=== PATIENT | male | born 1990 | race Caucasian/White ===

== ENCOUNTER 2019-09-14 16:48 | Emergency (ER) | payer SELFPAY ==
[~2019-09-14] VITALS: Ht 162.6 cm; Wt 63.6 kg
[2019-09-14 17:06] VITALS: BP 127/74
--- NOTE | 2019-09-14 17:16 | PHYS DOC ---
Past Medical History Past Medical History: Asthma Past Surgical History: No Surgical History Smoking Status: Current Every Day Smoker Alcohol Use: Occasionally Adult General Chief Complaint Chief Complaint: ABSCESS [facility] Patient is a 29 year old male who presents with bug bite to his abdomen in the left lower quadrant that he states hurts. He states it has been there 1 week. Denies any other symptoms but states his pain is 7/10 in severity and sharp. De nies fever or any additional symptoms. Complete ROS were reviewed and found to be within normal limits, except as documented in the [facility] Allergies Allergies Allergies Coded Allergies Type Severity Reaction Last Updated Verified No Known Drug Allergies 09/14/19 No Physical Exam Physical Exam Constitutional: Well developed, well nourished, no acute distress, non-toxic appearance. [] HENT: Normocephalic, atraumatic, bilateral external ears normal, oropharynx moist, no oral exudates, nose normal. [] Eyes: PERRLA, EOMI, conjunctiva normal, no discharge. [] Skin: Quarter side area of hardness to abdomen with no fluctuence but erythema. Has a head that appears to be from a bug bite. Neurologic: Alert and oriented X 3, normal motor function, normal sensory function, no focal deficits noted. [] Psychologic: Affect normal, judgement normal, mood normal. [] Current Patient Data Vital Signs Vital Signs Date Time Temp Pulse Resp B/P (MAP) Pulse Ox O2 Delivery O2 Flow Rate FiO2 09/14/19 17:06 99.6 98 20 127/74 (91) 100 Room Air 99.6 EKG EKG [] Radiology/Procedures Radiology/Procedures [] Course & Med Decision Making Course & Med Decision Making Pertinent Labs and Imaging studies reviewed. (See chart for details) Will place patient on Keflex and give Toradol. Dragon Disclaimer Dragon Disclaimer This electronic medical record was generated, in whole or in part, using a voice recognition dictation system. Departure Departure Impression: Primary Impression: Cellulitis Disposition: 01 HOME, SELF-CARE Condition: STABLE Referrals: NO PCP (PCP) Patient Instructions: Cellulitis Additional Instructions: Thank you for visiting [facility]. We appreciate you trusting us with your care. If any additional problems come up don't hesitate to return to visit us. Please follow up with your primary care provider so they can plan additional care if needed and know about the problem that you had. If symptoms worsen come back to the Emergency Department. Any concerning symptoms that start such as chest pain, shortness of air, weakness or numbness on one side of the body, running high fevers or any other concerning symptoms return to the ER. You have been prescribed an antibiotic today to help fight your infection. Please take all of the antibiotic as directed. If after 48 hours the infection is not improving, please return for more care. If the infection worsens, return to ER for additional care. Scripts Cephalexin (KEFLEX) 500 Mg Capsule 1 CAP PO QID for 7 Days, #28 CAP 0 Refills Prov: RICK ELAINE APRN 09/14/19 Problem Qualifiers Primary Impression: Cellulitis Site of cellulitis: other site Qualified Codes: L03.818 - Cellulitis of other sites RICK ELAINE APRN Sep 14, 2019 17:16
[2019-09-14] MEDS ORDERED: KETOROLAC TROMETHAMINE 10 MG TABLET PO STA (17:19)
[2019-09-14] MEDS ORDERED: CEPH-264 PO (17:21)
== END 2019-09-14 17:27 | disposition home or self-care (01) ==
LOC: ER 16:48
DX: L03.311 Cellulitis of abdominal wall (principal); R10.32 Left lower quadrant pain; J45.909 Unspecified asthma, uncomplicated; F17.200 Nicotine dependence, unspecified, uncomplicated
CPT/HCPCS: 99283

== ENCOUNTER 2020-04-04 07:38 | Emergency (ER) | payer SELFPAY ==
[~2020-04-04] VITALS: Ht 165.1 cm; Wt 68.0 kg
[~2020-04-04 07:38] MED LIST: CEPH-264 PO
[2020-04-04] MEDS ORDERED: IPRATRPIUM/ALBUTEROL 0.5/2.5MG 3 ML NEBU. NEB STA (08:03)
[2020-04-04] MEDS ORDERED: IPRATRPIUM/ALBUTEROL 0.5/2.5MG 3 ML NEBU. ONE (08:04)
[2020-04-04] MEDS ORDERED: MAGNESIUM SULFATE 2GM 50 ML IV ONE (08:15)
[2020-04-04] MEDS ORDERED: methylPREDNISolone SOD SUCC PF 125 MG/2 ML VIAL. IV ONE (08:15)
[2020-04-04 08:17] LABS: BASO # 0.1 x10^3/uL (0.0-0.2); BASO % 0 % (0-3); EOS # 0.4 x10^3/uL (0.0-0.7); EOS % 2 % (0-3); HEMATOCRIT 42.9 % (39.0-53.0); HEMOGLOBIN 14.8 g/dL (13.0-17.5); LYMPH # 2.3 x10^3/uL (1.0-4.8); LYMPH % 12 % (24-48); MEAN CORPUSCULAR HEMOGLOBIN 29 pg (25-35); MEAN CORPUSCULAR HGB CONC 34 g/dL (31-37); MEAN CORPUSCULAR VOLUME 85 fL (79-100); MONO # 0.9 x10^3/uL (0.0-1.1); MONO % 5 % (0-9); NEUT % 81 % (31-73); PLATELET COUNT 294 x10^3/uL (140-400); RED BLOOD COUNT 5.03 x10^6/uL (4.30-5.70); RED CELL DISTRIBUTION WIDTH 14.7 % (11.5-14.5); WHITE BLOOD COUNT 19.6 x10^3/uL (4.0-11.0)
[2020-04-04 08:26] LABS: CALCIUM 8.9 mg/dL (8.5-10.1); GFR 89.6; POTASSIUM 4.5 mmol/L (3.5-5.1)
[2020-04-04 08:32] LABS: ALBUMIN 3.7 g/dL (3.4-5.0); MAGNESIUM 1.9 mg/dL (1.8-2.4); TOTAL BILIRUBIN 0.4 mg/dL (0.2-1.0); TOTAL PROTEIN 7.4 g/dL (6.4-8.2)
--- NOTE | 2020-04-04 08:39 | RAD ---
EXAM: CHEST 1 VIEW History: Shortness of breath, asthma COMPARISON: 07/03/2012 TECHNIQUE: Single portable radiograph of the chest FINDINGS: The cardiac silhouette is unremarkable. The lungs are clear bilaterally. The costophrenic sulci are clear and well demarcated. . IMPRESSION: No radiographic evidence of an acute cardiopulmonary process. Electronically signed by: Aris Grayson MD (04/04/2020 8:36 AM) [id number]
--- NOTE | 2020-04-04 08:58 | PHYS DOC ---
Past Medical History Past Medical History: Asthma, Depression Past Surgical History: No Surgical History Smoking Status: Current Every Day Smoker Alcohol Use: Occasionally Social History Narrative: LAST USED METHAMPHETAMINE OVER 6 MOS AGO General Adult EDM: Chief Complaint: ASTHMA HPI: HPI: 29 yo M PMH asthma and depression, presents to the ed with c/o worsening shortness of breath, productive cough and chest tightness for the past 2 days, states his asthma is flaring up, usually triggered by cold air. Mother is room and states "his asthma has never been this bad." Last prednisone use was more than a year ago. No known sick contacts or exposure to covid. No h/o intubations but has been hospitalized in the past for asthma (more than 1 year ago). Has no pmd and is out of his inhaler. ROS: Denies associated fever, chills, cough, sore throat, neck stiffness, headache, nausea, vomiting, diarrhea, dysuria, hematuria, flank pain, rash, leg swelling, chest pressure heaviness or tearing sensation, hemoptysis, orthopnea. Current Medications: Current Medications Medications (Trade) Dose Ordered Sig/Prashanth Start Time Stop Time Status Last Admin Dose Admin Albuterol/ Ipratropium (Duoneb) 3 ml TID 04/04/20 09:00 Magnesium Sulfate 50 ml @ 25 mls/hr 1X ONCE 04/04/20 08:15 04/04/20 10:14 04/04/20 08:32 25 MLS/HR Methylprednisolone Sodium Succinate (SOLU-Medrol 125MG VIAL) 125 mg 1X ONCE 04/04/20 08:15 04/04/20 08:16 DC 04/04/20 08:32 125 MG Allergies: Allergies: Allergies Coded Allergies Type Severity Reaction Last Updated Verified No Known Drug Allergies 09/14/19 No Physical Exam: PE: Constitutional: Well developed, well nourished, no acute distress, non-toxic appearance. [] HENT: Normocephalic, atraumatic, bilateral external ears normal, oropharynx moist, no oral exudates, Eyes: EOMI, conjunctiva normal, no discharge. [] Neck: Normal range of motion, no tenderness, supple, no stridor. [] No drooling or muffled speech Cardiovascular:tachycardic, no murmur [] Lungs & Thorax: Bilateral breath sounds with audible and diffuse expiratory wheezing, 99-100% RA, tachypneic with sternal retractions Abdomen: Bowel sounds normal, soft, no tenderness, no masses, no pulsatile masses. [] Skin: Warm, dry, no erythema, no rash. [] Back: No tenderness, no CVA tenderness. [] Extremities: No tenderness, no cyanosis, no clubbing, ROM intact, no edema. [] Neurologic: Alert and oriented X 3, normal motor function, normal sensory function, no focal deficits noted. [] Psychologic: Affect normal, judgement normal, mood normal. [] Current Patient Data: Labs: Laboratory Tests Test 04/04/20 08:07 White Blood Count 19.6 x10^3/uL (4.0-11.0) H Red Blood Count 5.03 x10^6/uL (4.30-5.70) Hemoglobin 14.8 g/dL (13.0-17.5) Hematocrit 42.9 % (39.0-53.0) Mean Corpuscular Volume 85 fL (79-100) Mean Corpuscular Hemoglobin 29 pg (25-35) Mean Corpuscular Hemoglobin Concent 34 g/dL (31-37) Red Cell Distribution Width 14.7 % (11.5-14.5) H Platelet Count 294 x10^3/uL (140-400) Neutrophils (%) (Auto) 81 % (31-73) H Lymphocytes (%) (Auto) 12 % (24-48) L Monocytes (%) (Auto) 5 % (0-9) Eosinophils (%) (Auto) 2 % (0-3) Basophils (%) (Auto) 0 % (0-3) Neutrophils # (Auto) 16.0 x10^3/uL (1.8-7.7) H Lymphocytes # (Auto) 2.3 x10^3/uL (1.0-4.8) Monocytes # (Auto) 0.9 x10^3/uL (0.0-1.1) Eosinophils # (Auto) 0.4 x10^3/uL (0.0-0.7) Basophils # (Auto) 0.1 x10^3/uL (0.0-0.2) Platelet Estimate Pending Sodium Level 140 mmol/L (136-145) Potassium Level 4.5 mmol/L (3.5-5.1) Chloride Level 105 mmol/L (98-107) Carbon Dioxide Level 29 mmol/L (21-32) Anion Gap 6 (6-14) Blood Urea Nitrogen 13 mg/dL (8-26) Creatinine 1.0 mg/dL (0.7-1.3) Estimated GFR (Cockcroft-Gault) 89.6 BUN/Creatinine Ratio 13 (6-20) Glucose Level 112 mg/dL (70-99) H Calcium Level 8.9 mg/dL (8.5-10.1) Magnesium Level 1.9 mg/dL (1.8-2.4) Total Bilirubin 0.4 mg/dL (0.2-1.0) Aspartate Amino Transferase (AST) 30 U/L (15-37) Alanine Aminotransferase (ALT) 39 U/L (16-63) Alkaline Phosphatase 84 U/L (46-116) Lactate Dehydrogenase 227 U/L (85-227) Total Protein 7.4 g/dL (6.4-8.2) Albumin 3.7 g/dL (3.4-5.0) Albumin/Globulin Ratio 1.0 (1.0-1.7) Laboratory Tests 04/04/20 08:07 Laboratory Tests 04/04/20 08:07 Vital Signs: Vital Signs Date Time Temp Pulse Resp B/P (MAP) Pulse Ox O2 Delivery O2 Flow Rate FiO2 04/04/20 08:14 100 Room Air 04/04/20 07:43 98.8 125 24 139/96 (110) 98.8 EKG: EKG: [] Radiology/Procedures: Radiology/Procedures: IMAGING REPORT Signed PATIENT: SHIMA BELTRE ACCOUNT: [id number] : 1990 LOCATION: ER AGE: 29 SEX: M EXAM STATUS: REG ER ORD. PHYSICIAN: CHRIS ESCAMILLA DO REASON: soa,asthma PROCEDURE: PORTABLE CHEST 1V EXAM: CHEST 1 VIEW History: Shortness of breath, asthma COMPARISON: 07/03/2012 TECHNIQUE: Single portable radiograph of the chest FINDINGS: The cardiac silhouette is unremarkable. The lungs are clear bilaterally. The costophrenic sulci are clear and well demarcated. . IMPRESSION: No radiographic evidence of an acute cardiopulmonary process. Electronically signed by: Aris Grayson MD (04/04/2020 8:36 AM) [id number] DICTATED and SIGNED BY: ARIS GRAYSON MD DATE: 04/04/20835 Impression: Will criteria for pulmonary embolism 1.5 points Low risk group: 1.3% chance of PE in an ED population. Another study assigned scores ? 4 as PE Unlikely and had a 3% incidence of PE. Wells criteria for DVT 0 points Low risk group for DVT. Unlikely according to Wells DVT studies. Course & Med Decision Making: Course & Med Decision Making Pertinent Labs and Imaging studies reviewed. (See chart for details) Concern for asthma exacerbation, significant improvement with 3 DuoNeb treatments and Solu-Medrol in the ED. Patient now sleeping comfortably, and 98- 100% on room air with heart rate in the upper 90s. Lung sounds now clear, very scant expiratory wheezing at the bases with no tachypnea or increased work of br eathing - able to ambulate with no respiratory distress. Labs show leukocytosis, unspecified, 3 bands. Patient afebrile. Chest x-ray with no infiltrates.Pt with no nuchal rigidity, meningismus, active vomiting or diarrhea or urinary complaints. Strict ED return precautions were given for neck st iffness, fever, chest pain or increased work of breathing. Encouraged urgent outpatient follow-up with PMD and pulmonology (has no pmd and is out of his albuterol inhaler). Will prescribe prednisone for 4 days, albuterol and Flovent inhalers. Life-threatening processes were considered but are low suspicion at this time, given history and physical exam. Pt was educated on all prescription medications and adverse effects. All patient's questions were answered and pt was stable at time of discharge. Differential includes pneumonia, pneumothorax, meningitis, encephalitis, infection/urinary tract, pulmonary embolus, angina, ACS/cardiac chest pain I spoken with the patient and her caregivers. I explained the patient's condition, diagnoses and treatment plan based on the information available to me at this time. I have answered the patient and her caregiver's questions and addressed any concerns. The patient and her caregivers have a good understanding of patient's diagnosis, condition and treatment plan as can be expected at this point. Vital signs have been stable. Patient's condition is stable and appropriate for discharge from the emergency department. Patient will pursue further outpatient evaluation with primary care physician or other designated or consulting physician as outlined in the discharge instructions. The patient and/or caregivers are agreeable to this plan of care and follow-up instructions have been explained in detail. The patient and/or caregivers have received these instructions in written form and have expressed an understanding of the discharge instructions. The patient and/or caregivers are aware that any significant change of condition or worsening of symptoms should prompt immediate return to this or the closest emergency department or call to 911. Dragon Disclaimer: Dragon Disclaimer: This electronic medical record was generated, in whole or in part, using a voice recognition dictation system. Departure Departure Impression: Primary Impression: Asthma exacerbation Additional Impression: Leukocytosis, unspecified Disposition: HOME, SELF-CARE Condition: STABLE Referrals: NO PCP (PCP) Patient Instructions: Asthma Prevention-Brief, Asthma, Adult Additional Instructions: Chrissy Palmer MD in 2-3 days for reevaluation Family Medicine Address: [address] [facility] [address] [place] [address] Lukas Weiss MD in 1-2 weeks Pulmonary Medicine Address: [address] [facility] [address] [place] [address] Scripts Albuterol Sulfate (VENTOLIN HFA INHALER) 18 Gm Hfa.aer.ad 2 PUFF INH QID PRN for WHEEZING, #1 INHALER 0 Refills Prov: CHRIS ESCAMILLA DO 04/04/20 Fluticasone Propionate (FLOVENT 44MCG HFA) 10.6 Gm Aer.w.adap 2 PUFF IH BID, #1 INHALER 2 Refills Prov: CHRIS ESCAMILLA DO 04/04/20 Prednisone (PREDNISONE) 20 Mg Tablet 2 TAB PO DAILY for 4 Days, #8 TAB Prov: CHRIS ESCAMILLA DO 04/04/20 Justicifation of Admission Dx: Justifications for Admission: Justification of Admission Dx: N/A CHRIS ESCAMILLA DO Apr 04, 2020 08:58
[2020-04-04] MEDS ORDERED: IPRATRPIUM/ALBUTEROL 0.5/2.5MG 3 ML NEBU. NEB SCH (09:00)
[2020-04-04 10:22] LABS: % BANDS 3 % (0-9); % BASOS 2 % (0-3); % EOS 3 % (0-5); % LYMPHS 13 % (24-48); % MONOS 6 % (0-10); % SEGS 73 % (35-66); PLT ESTIMATE ADEQUATE (ADEQUATE)
[2020-04-04] MEDS ORDERED: FLUT10.6 IH (10:42)
[2020-04-04] MEDS ORDERED: PRED20TA PO (10:42)
[2020-04-04] MEDS ORDERED: VENTOLIN HFA18 GM INH (10:42)
[2020-04-04 11:18] VITALS: BP 115/64
== END 2020-04-04 11:30 | disposition home or self-care (01) ==
LOC: ER 07:38
DX: J45.901 Unspecified asthma with (acute) exacerbation (principal); D72.828 Other elevated white blood cell count; R06.02 Shortness of breath; R07.89 Other chest pain; R05 Cough; F32.9 Major depressive disorder, single episode, unspecified; F17.200 Nicotine dependence, unspecified, uncomplicated
CPT/HCPCS: 36415; 71045; 80053; 83615; 83735; 85007; 85025; 94640; 96365; 96375; 99285; J2930; J3475

== ENCOUNTER 2020-08-25 11:21 | Emergency (ER) | payer SELFPAY ==
[~2020-08-25] VITALS: Ht 165.1 cm; Wt 63.6 kg
[~2020-08-25 11:21] MED LIST changes: +FLUT10.6 IH; +PRED20TA PO; +VENTOLIN HFA18 GM INH
[2020-08-25 11:39] VITALS: BP 134/75
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
== END 2020-08-25 12:55 | disposition left against medical advice (07) ==
LOC: ER 11:21
DX: S00.11XA Contusion of right eyelid and periocular area, initial encounter (principal); S00.83XA Contusion of other part of head, initial encounter; R07.89 Other chest pain; F31.9 Bipolar disorder, unspecified; F20.9 Schizophrenia, unspecified; J45.909 Unspecified asthma, uncomplicated; F41.9 Anxiety disorder, unspecified; F17.200 Nicotine dependence, unspecified, uncomplicated; Y08.89XA Assault by other specified means, initial encounter; Y93.89 Activity, other specified; Y92.89 Other specified places as the place of occurrence of the external cause; Y99.8 Other external cause status
CPT/HCPCS: 99281

== ENCOUNTER 2021-05-30 00:57 | Emergency (ER) | payer SELFPAY ==
[~2021-05-30] VITALS: Ht 165.1 cm; Wt 68.1 kg
[2021-05-30 01:16] LABS: BASO # 0.1 x10^3/uL (0.0-0.2); BASO % 0 % (0-3); EOS # 0.5 x10^3/uL (0.0-0.7); EOS % 3 % (0-3); HEMATOCRIT 40.9 % (39.0-53.0); HEMOGLOBIN 14.1 g/dL (13.0-17.5); LYMPH # 4.6 x10^3/uL (1.0-4.8); LYMPH % 26 % (24-48); MEAN CORPUSCULAR HEMOGLOBIN 30 pg (25-35); MEAN CORPUSCULAR HGB CONC 34 g/dL (31-37); MEAN CORPUSCULAR VOLUME 86 fL (79-100); MONO % 6 % (0-9); NEUT # 11.7 x10^3/uL (1.8-7.7); NEUT % 65 % (31-73); PLATELET COUNT 336 x10^3/uL (140-400); RED BLOOD COUNT 4.77 x10^6/uL (4.30-5.70); WHITE BLOOD COUNT 17.9 x10^3/uL (4.0-11.0)
--- NOTE | 2021-05-30 01:17 | PHYS DOC ---
Past Medical History Past Medical History: Anxiety, Asthma, Bipolar, Depression, Schizophrenia Past Surgical History: No Surgical History Smoking Status: Current Every Day Smoker Alcohol Use: Occasionally Drug Use: None General Adult EDM: Chief Complaint: SHORTNESS OF BREATH HPI: HPI: 31-year-old male with a history of asthma, current smoking presents to the emergency room complaining of shortness of breath for 1 week that was exacerba corinna over the last few hours. He has also noticed over the last 24 hours that he has developed a rash over his arms chest and neck. He admits to feeling very short of breath and speaks in very short sentences. He is diaphoretic, and appears acutely short of breath. He is not on any supplemental oxygen at home. He tried a breathing treatment prior to arrival in the emergency department without reduction of his symptoms. He has been admitted for asthma in the past, he has never been intubated or been admitted to the ICU for his asthma. He denies any allergens today that were new to him. He denies sudden onset of symptoms, stating that the came on gradually. The patient denies nausea, vomiting, fever, chills, abdominal pain, urinary symptoms, recent trauma, or any other complaints. Review of Systems: Review of Systems: Constitutional: Negative except what was mentioned in HPI. Eyes: Negative except what was mentioned in HPI. HENT: Negative except what was mentioned in HPI. Respiratory: Negative except what was mentioned in HPI. Cardiovascular: Negative except what was mentioned in HPI. GI: Negative except what was mentioned in HPI. : Negative except what was mentioned in HPI. Musculoskeletal: Negative except what was mentioned in HPI. Integument: Negative except what was mentioned in HPI. Neurologic: Negative except what was mentioned in HPI. Heart Score: C/O Chest Pain: No Current Medications: Current Medications Medications (Trade) Dose Ordered Sig/Prashanth Start Time Stop Time Status Last Admin Dose Admin Albuterol Sulfate (Ventolin Neb Soln) 2.5 mg 1X ONCE 05/30/21 01:15 05/30/21 01:16 UNV Albuterol/ Ipratropium (Duoneb) 3 ml 1X ONCE 05/30/21 01:15 05/30/21 01:16 UNV Diphenhydramine HCl (Benadryl) 25 mg 1X ONCE 05/30/21 01:15 05/30/21 01:16 UNV Epinephrine HCl (Adrenalin) 0.3 mg 1X ONCE 05/30/21 01:15 05/30/21 01:16 UNV Magnesium Sulfate 50 ml @ 25 mls/hr 1X ONCE 05/30/21 01:15 05/30/21 03:14 UNV Prednisone (Prednisone) 50 mg 1X ONCE 05/30/21 01:15 05/30/21 01:16 UNV Sodium Chloride 1,000 ml @ 1,000 mls/hr Q1H 05/30/21 01:15 05/30/21 02:14 UNV Allergies: Allergies: Allergies Coded Allergies Type Severity Reaction Last Updated Verified No Known Drug Allergies 09/14/19 No Physical Exam: PE: Constitutional: Severe distress. Appears anxious HENT: Atraumatic, bilateral external ears normal, nose normal. No neck swe lling. Eyes: PERRLA, EOMI, conjunctiva normal, no discharge. Neck: Normal range of motion, supple, no stridor. Cardiovascular: Heart rate regular rhythm. 2+ radial pulses Lungs & Thorax: No respiratory distress, symmetrical expansion. Wheezing appreciated both lung davis Abdomen: Soft, no tenderness Skin: Maculopapular appearing rash in both arms, chest and neck Extremities: No tenderness, no cyanosis, ROM intact, no edema. Neurologic: Alert and oriented X 3, normal motor function, normal sensory function, no focal deficits noted. GCS 15. Current Patient Data: Labs: Laboratory Tests Test 05/30/21 01:05 05/30/21 01:16 05/30/21 01:35 White Blood Count 17.9 x10^3/uL (4.0-11.0) Red Blood Count 4.77 x10^6/uL (4.30-5.70) Hemoglobin 14.1 g/dL (13.0-17.5) Hematocrit 40.9 % (39.0-53.0) Mean Corpuscular Volume 86 fL (79-100) Mean Corpuscular Hemoglobin 30 pg (25-35) Mean Corpuscular Hemoglobin Concent 34 g/dL (31-37) Red Cell Distribution Width 14.0 % (11.5-14.5) Platelet Count 336 x10^3/uL (140-400) Neutrophils (%) (Auto) 65 % (31-73) Lymphocytes (%) (Auto) 26 % (24-48) Monocytes (%) (Auto) 6 % (0-9) Eosinophils (%) (Auto) 3 % (0-3) Basophils (%) (Auto) 0 % (0-3) Neutrophils # (Auto) 11.7 x10^3/uL (1.8-7.7) Lymphocytes # (Auto) 4.6 x10^3/uL (1.0-4.8) Monocytes # (Auto) 1.0 x10^3/uL (0.0-1.1) Eosinophils # (Auto) 0.5 x10^3/uL (0.0-0.7) Basophils # (Auto) 0.1 x10^3/uL (0.0-0.2) Sodium Level 140 mmol/L (136-145) Potassium Level 4.3 mmol/L (3.5-5.1) Chloride Level 105 mmol/L (98-107) Carbon Dioxide Level 29 mmol/L (21-32) Anion Gap 6 (6-14) Blood Urea Nitrogen 9 mg/dL (8-26) Creatinine 1.0 mg/dL (0.7-1.3) Estimated GFR (Cockcroft-Gault) 88.3 Glucose Level 108 mg/dL (70-99) Calcium Level 8.7 mg/dL (8.5-10.1) Troponin I Quantitative < 0.017 ng/mL (0.000-0.055) ZO-Rsz-[id number]-Type Natriuretic Peptide 28 pg/mL (0-124) Influenza Type A Antigen Negative (NEGATIVE) Influenza Type B Antigen Negative (NEGATIVE) SARS-CoV-2 Antigen (Rapid) Negative (NEGATIVE) D-Dimer (Linda) < 0.27 ug/mlFEU My Orders - PATRICE CROCKER DO Procedure Category Date Status Time Vital Signs Monitoring ER 05/30/21 Transmitted 01:04 Blood Pressure ER 05/30/21 Transmitted Monitoring 01:04 Cardiac Monitoring ER 05/30/21 Transmitted 01:04 Cbc W Autodiff LAB 05/30/21 Complete 01:04 Basic Metabolic Panel LAB 05/30/21 Complete 01:04 D-Dimer LAB 05/30/21 Complete 01:04 Influenza A&B Rapid LAB 05/30/21 Complete 01:04 Portable Chest 1v RAD 05/30/21 Taken 01:04 12 Lead Ekg EKG 05/30/21 Logged 01:04 Iv Normal Saline PHA 05/30/21 Complete 1000ml Bag (Iv Sodium 01:30 Albuterol Neb Soln PHA 05/30/21 Complete (Ventolin Neb Soln) 01:30 Ipratrpium/Albuterol PHA 05/30/21 Complete 0.5/2.5mg (Duoneb) 01:30 Prednisone PHA 05/30/21 Complete (Prednisone) 01:30 Nt-Pro Bnp LAB 05/30/21 Complete 01:04 Troponini LAB 05/30/21 Complete 01:04 Arterial Puncture RT 05/30/21 Complete Withdraw Bld Abg Only LAB 05/30/21 Logged 01:04 Magnesium Sulfate 2gm PHA 05/30/21 Complete (Magnesium Sulfate 01:30 Sars Cov2 (Verdi) LAB 05/30/21 In Process 01:04 Sars Antigen Lis Rapid LAB 05/30/21 Complete 01:04 Airway Inhalation RT 05/30/21 Complete Treatment 01:04 Airway Inhalation RT 05/30/21 Complete Treatment 01:04 Diphenhydramine PHA 05/30/21 Complete (Benadryl) 01:30 Epinephrine PHA 05/30/21 Complete (Adrenalin) 01:30 Iv Normal Saline PHA 05/30/21 Complete 1000ml Bag (Iv Sodium 02:00 Vital Signs: Vital Signs Date Time Temp Pulse Resp B/P (MAP) Pulse Ox O2 Delivery O2 Flow Rate FiO2 05/30/21 04:37 68 18 171/77 (108) 98 Room Air 05/30/21 03:59 82 20 92/51 (65) 97 Room Air 05/30/21 03:29 87 20 106/53 (70) 96 Room Air 05/30/21 02:59 85 20 101/56 (71) 97 Room Air 05/30/21 02:29 90 22 121/76 (91) 95 Room Air 05/30/21 01:59 98 22 141/78 (99) 99 Room Air 05/30/21 01:30 100 Room Air 05/30/21 01:29 101 22 145/69 (94) 98 Room Air 05/30/21 01:20 96 Room Air 05/30/21 01:03 98.6 111 28 155/95 (115) 97 Room Air 98.6 05/30/21 00:59 112 22 155/95 (115) 96 Room Air EKG: EKG: Time read: 0114 Sinus tachycardia rate of 109, hyperacute T waves in V3 and V4, there is no reciprocal change. No ectopic beats, normal axis, normal IA, QRS, and QTc intervals. Impression: Normal EKG. interpreted by Patrice vázquez D.O. Radiology/Procedures: Radiology/Procedures: No airspace disease, infiltrates or consolidations, lung davis clear. No pneumothorax or pleural effusion. Cardiac silhouette within normal limits. No widening of mediastinum. No obvious free air seen. Impression: normal CXR. Interpreted by Patrice vázquez D.O. Course & Med Decision Making: Course & Med Decision Making Due to wheezing, diffuse rash and extremities, concern was for allergic/anaphylactic reaction. Patient was given breathing treatment, prednisone along with an EpiPen. He experienced immediate relief with the EpiPen and his rash spontaneously resolved. He was observed for 3 hours after epinephrine and felt much better. He was resting comfortably upon discharge examination. I counseled him on anaphylactic reaction and return precautions and will prescribe an EpiPen along with a course of steroids to take at home. He was discharged in improved condition with no rash, no wheezing, and no respiratory distress. My Orders - PATRICE CROCKER DO Procedure Category Date Status Time Vital Signs Monitoring ER 05/30/21 Transmitted 01:04 Blood Pressure ER 05/30/21 Transmitted Monitoring 01:04 Cardiac Monitoring ER 05/30/21 Transmitted 01:04 Cbc W Autodiff LAB 05/30/21 Complete 01:04 Basic Metabolic Panel LAB 05/30/21 Complete 01:04 D-Dimer LAB 05/30/21 Complete 01:04 Influenza A&B Rapid LAB 05/30/21 Complete 01:04 Portable Chest 1v RAD 05/30/21 Taken 01:04 12 Lead Ekg EKG 05/30/21 Logged 01:04 Iv Normal Saline PHA 05/30/21 Complete 1000ml Bag (Iv Sodium 01:30 Albuterol Neb Soln PHA 05/30/21 Complete (Ventolin Neb Soln) 01:30 Ipratrpium/Albuterol PHA 05/30/21 Complete 0.5/2.5mg (Duoneb) 01:30 Prednisone PHA 05/30/21 Complete (Prednisone) 01:30 Nt-Pro Bnp LAB 05/30/21 Complete 01:04 Troponini LAB 05/30/21 Complete 01:04 Arterial Puncture RT 05/30/21 Complete Withdraw Bld Abg Only LAB 05/30/21 Logged 01:04 Magnesium Sulfate 2gm PHA 05/30/21 Complete (Magnesium Sulfate 01:30 Sars Cov2 (Verdi) LAB 05/30/21 In Process 01:04 Sars Antigen Lis Rapid LAB 05/30/21 Complete 01:04 Airway Inhalation RT 05/30/21 Complete Treatment 01:04 Airway Inhalation RT 05/30/21 Complete Treatment 01:04 Diphenhydramine PHA 05/30/21 Complete (Benadryl) 01:30 Epinephrine PHA 05/30/21 Complete (Adrenalin) 01:30 Iv Normal Saline PHA 05/30/21 Complete 1000ml Bag (Iv Sodium 02:00 Departure Departure Impression: Primary Impression: Anaphylactic reaction Disposition: HOME / SELF CARE / HOMELESS Condition: IMPROVED Referrals: NO PCP (PCP) Patient Instructions: Anaphylactic Reaction, [id number] Additional Instructions: You were seen for a possible allergic reaction. You should take the entire course of steroids as prescribed. You need to follow up in the allergy or medicine clinic for further evaluation. It is unclear what caused your reaction. If you start to have shortness of breath, facial swelling, tongue swelling, difficulty swallowing, or any other concerning symptoms you should take your epipen and call 911 to return to the ED. Scripts Prednisone (PREDNISONE) 50 Mg Tablet 1 TAB PO DAILY, #5 TAB Prov: PATRICE CROCKER DO 05/30/21 Epinephrine (EPIPEN 2-CHERYL) 0.3 Mg/0.3 Ml Auto.injct 1 SYR IM ONCE for 1 Day, #1 PACKET 0 Refills Prov: PATRICE CROCKER DO 05/30/21 PATRICE CROCKER DO May 30, 2021 01:17
[2021-05-30 01:25] LABS: CALCIUM 8.7 mg/dL (8.5-10.1); GFR 88.3; POTASSIUM 4.3 mmol/L (3.5-5.1)
[2021-05-30] MEDS ORDERED: IPRATRPIUM/ALBUTEROL 0.5/2.5MG 3 ML NEBU. NEB ONE (01:30)
[2021-05-30] MEDS ORDERED: ALBUTEROL SULFATE 2.5 MG/3 ML NEBU. NEB ONE (01:30)
[2021-05-30] MEDS ORDERED: IV NORMAL SALINE 1000ML BAG 1,000 ML IV SCH (01:30)
[2021-05-30] MEDS ORDERED: MAGNESIUM SULFATE 2GM 50 ML IV ONE (01:30)
[2021-05-30] MEDS ORDERED: predniSONE 10 MG TABLET PO ONE (01:30)
[2021-05-30] MEDS ORDERED: diphenhydrAMINE 50 MG/ML VIAL IV ONE (01:30)
[2021-05-30] MEDS ORDERED: EPINEPHrine 1 MG/ML VIAL IM ONE (01:30)
[2021-05-30 01:39] LABS: INFLUENZA A PATIENT NEGATIVE (NEGATIVE); INFLUENZA B PATIENT NEGATIVE (NEGATIVE)
[2021-05-30] MEDS ORDERED: IV NORMAL SALINE 1000ML BAG 1,000 ML IV ONE (02:00)
[2021-05-30] MEDS ORDERED: EPIPEN 2-P0.3 MG/0.3 IM (04:55)
[2021-05-30] MEDS ORDERED: PRED50TA PO (04:55)
[2021-05-30 04:59] VITALS: BP 124/74
--- NOTE | 2021-05-30 05:35 | RAD ---
EXAM: CHEST 1 VIEW History: Shortness of breath COMPARISON: 04/04/2020 TECHNIQUE: Single portable radiograph of the chest FINDINGS: The cardiac silhouette is unremarkable. The lungs are clear bilaterally. The costophrenic sulci are clear and well demarcated. IMPRESSION: No radiographic evidence of an acute cardiopulmonary process. Electronically signed by: Aris Grayson MD (05/30/2021 5:32 AM) [id number]
--- NOTE | 2021-05-31 09:52 | NUR ---
IP: Informed pt of negative covid test. Pt verbalized understanding.
== END 2021-05-30 05:20 | disposition home or self-care (01) ==
LOC: ER 00:57
DX: T78.2XXA Anaphylactic shock, unspecified, initial encounter (principal); Z20.822 Contact with and (suspected) exposure to COVID-19; J45.909 Unspecified asthma, uncomplicated; F31.9 Bipolar disorder, unspecified; F20.9 Schizophrenia, unspecified; F17.200 Nicotine dependence, unspecified, uncomplicated
CPT/HCPCS: 36415; 36600; 71045; 80048; 83880; 84484; 85025; 85379; 87426; 87804; 94640; 96365; 96366; 96372; 96375; 99285; J0171; J1200; J3475; J7030; J7512; J7613; U0003; U0005

== ENCOUNTER 2021-06-22 07:36 | Emergency (ER) | payer SELFPAY ==
[~2021-06-22] VITALS: Ht 172.7 cm; Wt 68.1 kg
[~2021-06-22 07:36] MED LIST changes: +EPIPEN 2-P0.3 MG/0.3 IM; +PRED50TA PO
[2021-06-22] MEDS ORDERED: IPRATRPIUM/ALBUTEROL 0.5/2.5MG 3 ML NEBU. NEB ONE ×2 (07:45→09:30)
[2021-06-22] MEDS ORDERED: methylPREDNISolone SOD SUCC PF 125 MG/2 ML VIAL. IV ONE (07:45)
[2021-06-22 08:01] LABS: BASO # 0.1 x10^3/uL (0.0-0.2); BASO % 1 % (0-3); EOS # 0.8 x10^3/uL (0.0-0.7); EOS % 7 % (0-3); HEMATOCRIT 42.6 % (39.0-53.0); LYMPH % 25 % (24-48); MEAN CORPUSCULAR HEMOGLOBIN 30 pg (25-35); MEAN CORPUSCULAR HGB CONC 35 g/dL (31-37); MEAN CORPUSCULAR VOLUME 85 fL (79-100); MONO # 0.7 x10^3/uL (0.0-1.1); MONO % 6 % (0-9); NEUT # 7.5 x10^3/uL (1.8-7.7); NEUT % 62 % (31-73); PLATELET COUNT 387 x10^3/uL (140-400); RED BLOOD COUNT 5.01 x10^6/uL (4.30-5.70); RED CELL DISTRIBUTION WIDTH 13.4 % (11.5-14.5); WHITE BLOOD COUNT 12.1 x10^3/uL (4.0-11.0)
--- NOTE | 2021-06-22 08:05 | RAD ---
XR CHEST 1V INDICATION: soa COMPARISON STUDY: 05/30/2021. FINDINGS: Lungs: Normal lung volume. No pulmonary mass or consolidation. The tracheobronchial tree and hilar st ructures are normal. Pleura: No pleural effusion or pneumothorax. Heart and Mediastinum: The cardiomediastinal silhouette is normal. The great vessels of the thorax ar e normal. Bones and Soft Tissues: The bones and soft tissues are within normal limits. IMPRESSION: No acute cardiopulmonary process. Electronically signed by: Dequan Turner MD (06/22/2021 8:03 AM) [id number]
[2021-06-22 08:09] LABS: CALCIUM 9.1 mg/dL (8.5-10.1); GFR 88.3; POTASSIUM 4.6 mmol/L (3.5-5.1)
--- NOTE | 2021-06-22 08:12 | PHYS DOC ---
Past Medical History Past Medical History: Anxiety, Asthma, Bipolar, Depression, Schizophrenia Past Surgical History: No Surgical History Smoking Status: Current Every Day Smoker Additional Information: 5 cigarettes daily Alcohol Use: None Drug Use: None General Adult EDM: Chief Complaint: ASTHMA HPI: HPI: Patient is a 31 year old male who present to ER due to trouble breathing. Patient said he had asthmatic attack. Patient said he been having trouble breathing off and on for 1 month, he has used his albuterol inhaler and nebulizer treatment, he ran out of these medications couple days ago. Patient has nonproductive cough, no chest pain, no fever. Patient said he was vaccinated for COVID-19 Review of Systems: Review of Systems: Constitutional: Denies fever or chills. [] Eyes: Denies change in visual acuity. [] HENT: Denies nasal congestion or sore throat. [] Respiratory: Positive for cough and trouble breathing Cardiovascular: Denies chest pain or edema. [] GI: Denies abdominal pain, nausea, vomiting, bloody stools or diarrhea. [] : Denies dysuria. [] Musculoskeletal: Denies back pain or joint pain. [] Integument: Denies rash. [] Neurologic: Denies headache, focal weakness or sensory changes. [] Endocrine: Denies polyuria or polydipsia. [] Lymphatic: Denies swollen glands. [] Psychiatric: Denies depression or anxiety. [] Heart Score: C/O Chest Pain: N/A Risk Factors: Risk Factors: DM, Current or recent (<one month) smoker, HTN, HLP, family history of CAD, obesity. Risk Scores: Score 0 - 3: 2.5% MACE over next 6 weeks - Discharge Home Score 4 - 6: 20.3% MACE over next 6 weeks - Admit for Clinical Observation Score 7 - 10: 72.7% MACE over next 6 weeks - Early Invasive Strategies Current Medications: Current Medications Medications (Trade) Dose Ordered Sig/Prashanth Start Time Stop Time Status Last Admin Dose Admin Albuterol/ Ipratropium (Duoneb) 3 ml 1X ONCE 06/22/21 07:45 06/22/21 07:46 DC 06/22/21 07:54 3 ML Methylprednisolone Sodium Succinate (SOLU-Medrol 125MG VIAL) 125 mg 1X ONCE 06/22/21 07:45 06/22/21 07:46 DC 06/22/21 07:45 125 MG Allergies: Allergies: Allergies Coded Allergies Type Severity Reaction Last Updated Verified No Known Drug Allergies 09/14/19 No Physical Exam: PE: Constitutional: Well developed, well nourished, no acute distress, non-toxic appearance. [] HENT: Normocephalic, atraumatic, bilateral external ears normal, oropharynx moist, no oral exudates, nose normal. [] Eyes: PERRLA, EOMI, conjunctiva normal, no discharge. [] Neck: Normal range of motion, no tenderness, supple, no stridor. [] Cardiovascular:Heart rate regular rhythm, no murmur [] Lungs & Thorax: Bilateral breath sounds with wheezing to auscultation, tachypneic, mild respiratory distress Abdomen: Bowel sounds normal, soft, no tenderness, no masses, no pulsatile masses. [] Skin: Warm, no erythema no rash. Positive for diaphoresis Back: No tenderness, no CVA tenderness. [] Extremities: No tenderness, no cyanosis, no clubbing, ROM intact, no edema. [] Neurologic: Alert and oriented X 3, normal motor function, normal sensory function, no focal deficits noted. [] Psychologic: Affect normal, judgement normal, mood normal. [] Current Patient Data: Labs: Laboratory Tests Test 06/22/21 07:45 White Blood Count 12.1 x10^3/uL Red Blood Count 5.01 x10^6/uL Hemoglobin 15.0 g/dL Hematocrit 42.6 % Mean Corpuscular Volume 85 fL Mean Corpuscular Hemoglobin 30 pg Mean Corpuscular Hemoglobin Concent 35 g/dL Red Cell Distribution Width 13.4 % Platelet Count 387 x10^3/uL Neutrophils (%) (Auto) 62 % Lymphocytes (%) (Auto) 25 % Monocytes (%) (Auto) 6 % Eosinophils (%) (Auto) 7 % Basophils (%) (Auto) 1 % Neutrophils # (Auto) 7.5 x10^3/uL Lymphocytes # (Auto) 3.0 x10^3/uL Monocytes # (Auto) 0.7 x10^3/uL Eosinophils # (Auto) 0.8 x10^3/uL Basophils # (Auto) 0.1 x10^3/uL Sodium Level 139 mmol/L Potassium Level 4.6 mmol/L Chloride Level 104 mmol/L Carbon Dioxide Level 29 mmol/L Anion Gap 6 Blood Urea Nitrogen 15 mg/dL Creatinine 1.0 mg/dL Estimated GFR (Cockcroft-Gault) 88.3 BUN/Creatinine Ratio 15 Glucose Level 95 mg/dL Calcium Level 9.1 mg/dL Magnesium Level 2.1 mg/dL Total Bilirubin 0.4 mg/dL Aspartate Amino Transf (AST/SGOT) 23 U/L Alanine Aminotransferase (ALT/SGPT) 32 U/L Alkaline Phosphatase 90 U/L Total Protein 7.7 g/dL Albumin 3.9 g/dL Albumin/Globulin Ratio 1.0 Current Medications Medications (Trade) Dose Ordered Sig/Prashanth Route PRN Reason Start Time Stop Time Status Last Admin Dose Admin Albuterol/ Ipratropium (Duoneb) 3 ml 1X ONCE NEB 06/22/21 07:45 06/22/21 07:46 DC 06/22/21 07:54 Methylprednisolone Sodium Succinate (SOLU-Medrol 125MG VIAL) 125 mg 1X ONCE IV 06/22/21 07:45 06/22/21 07:46 DC 06/22/21 07:45 Albuterol/ Ipratropium (Duoneb) 3 ml 1X ONCE NEB 06/22/21 09:30 06/22/21 09:31 DC 06/22/21 09:28 Laboratory Tests Test 06/22/21 07:45 White Blood Count 12.1 x10^3/uL (4.0-11.0) H Red Blood Count 5.01 x10^6/uL (4.30-5.70) Hemoglobin 15.0 g/dL (13.0-17.5) Hematocrit 42.6 % (39.0-53.0) Mean Corpuscular Volume 85 fL (79-100) Mean Corpuscular Hemoglobin 30 pg (25-35) Mean Corpuscular Hemoglobin Concent 35 g/dL (31-37) Red Cell Distribution Width 13.4 % (11.5-14.5) Platelet Count 387 x10^3/uL (140-400) Neutrophils (%) (Auto) 62 % (31-73) Lymphocytes (%) (Auto) 25 % (24-48) Monocytes (%) (Auto) 6 % (0-9) Eosinophils (%) (Auto) 7 % (0-3) H Basophils (%) (Auto) 1 % (0-3) Neutrophils # (Auto) 7.5 x10^3/uL (1.8-7.7) Lymphocytes # (Auto) 3.0 x10^3/uL (1.0-4.8) Monocytes # (Auto) 0.7 x10^3/uL (0.0-1.1) Eosinophils # (Auto) 0.8 x10^3/uL (0.0-0.7) H Basophils # (Auto) 0.1 x10^3/uL (0.0-0.2) Laboratory Tests 06/22/21 07:45 Vital Signs: Vital Signs Date Time Temp Pulse Resp B/P (MAP) Pulse Ox O2 Delivery O2 Flow Rate FiO2 06/22/21 07:54 97 Room Air 06/22/21 07:37 98.0 120 28 134/67 (89) 98.0 EKG: EKG: [] Radiology/Procedures: Radiology/Procedures: [][facility] [address] [place], [place] [id number] IMAGING REPORT Signed PATIENT: SHIMA BELTRE ACCOUNT: [id number] : 1990 LOCATION: ER AGE: 31 SEX: M EXAM STATUS: REG ER ORD. PHYSICIAN: GUME LOPEZ DO REASON: soa PROCEDURE: CHEST AP ONLY XR CHEST 1V INDICATION: soa COMPARISON STUDY: 05/30/2021. FINDINGS: Lungs: Normal lung volume. No pulmonary mass or consolidation. The tracheobronchial tree and hilar structures are normal. Pleura: No pleural effusion or pneumothorax. Heart and Mediastinum: The cardiomediastinal silhouette is normal. The great v essels of the thorax are normal. Bones and Soft Tissues: The bones and soft tissues are within normal limits. IMPRESSION: No acute cardiopulmonary process. Electronically signed by: Lionel Orozco MD (06/22/2021 8:03 AM) [id number] DICTATED and SIGNED BY: LIONEL OROZCO MD DATE: 06/22/21 [id number] 0 Course & Med Decision Making: Course & Med Decision Making Pertinent Labs and Imaging studies reviewed. (See chart for details) Patient is a 31-year-old male who presented to ER for evaluation of trouble breathing, patient had asthmatic exacerbation. Patient was given treatment in ER, he felt much better. Patient will be discharged home with prescription for albuterol inhaler and albuterol nebulizer solution. Dragon Disclaimer: Dragon Disclaimer: This electronic medical record was generated, in whole or in part, using a voice recognition dictation system. Departure Departure Impression: Primary Impression: Exacerbation of asthma Disposition: HOME / SELF CARE / HOMELESS Condition: IMPROVED Referrals: NO PCP (PCP) Please follow up with [facility] this week. [address] [facility], [address] [place] [address] Phone number: [phone] Patient Instructions: Asthma Attacks, Prevention, Asthma, Adult Additional Instructions: Thank you for visiting our Emergency Department. We appreciate you trusting us with your care. If any additional problems come up don't hesitate to return to visit us. Please follow up with your primary care provider so they can plan additional care if needed and know about the problem that you had. If symptoms worsen come back to the Emergency Department. Any concerning symptoms that start such as chest pain, shortness of air, weakness or numbness on one side of the body, running high fevers or any other concerning symptoms return to the ER. Scripts Prednisone (PREDNISONE) 20 Mg Tablet 2 TAB PO DAILY for 7 Days, #14 TAB Prov: GUME LOPEZ DO 06/22/21 Albuterol Sulfate (ALBUTEROL SULFATE NEB SOLN) 2.5 Mg/3 Ml Vial.neb 1 VIAL NEB PRN Q4HRS, #50 VIAL Prov: GUME LOPEZ DO 06/22/21 Albuterol Sulfate (PROAIR HFA INHALER) 8.5 Gm Hfa.aer.ad 2 PUFF IH PRN Q4-6HRS PRN for wheezing for 21 Days, #1 INHALER 0 Refills Prov: GUME LOPEZ DO 06/22/21 GUME LOPEZ DO Jun 22, 2021 08:12
[2021-06-22 08:13] LABS: ALBUMIN 3.9 g/dL (3.4-5.0); MAGNESIUM 2.1 mg/dL (1.8-2.4); TOTAL BILIRUBIN 0.4 mg/dL (0.2-1.0); TOTAL PROTEIN 7.7 g/dL (6.4-8.2)
[2021-06-22] MEDS ORDERED: ALBU2.5V5 NEB (09:52)
[2021-06-22] MEDS ORDERED: PRED20TA PO (09:52)
[2021-06-22] MEDS ORDERED: ALBU2.5V8 IH (09:52)
[2021-06-22 10:48] VITALS: BP 119/75
== END 2021-06-22 10:49 | disposition home or self-care (01) ==
LOC: ER 07:36
DX: J45.901 Unspecified asthma with (acute) exacerbation (principal); F31.9 Bipolar disorder, unspecified; F20.9 Schizophrenia, unspecified; F17.210 Nicotine dependence, cigarettes, uncomplicated
CPT/HCPCS: 36415; 71045; 80053; 83735; 85025; 94640; 96374; 99285; J2930